=== PATIENT | female | born 1985 | race Caucasian/White ===

== ENCOUNTER 2017-04-26 04:49 | Inpatient (IN) ==
[2017-04-26] MEDS ORDERED: *HR* FentaNYL (PF) 100 MCG/2 ML VIAL IVP ONE ×3 (05:15→07:06)
[2017-04-26] MEDS ORDERED: Ondansetron 4 MG/2 ML VIAL IVP ONE (05:15)
[2017-04-26] MEDS ORDERED: *HR* FentaNYL (PF) 100 MCG/2 ML VIAL ONE (05:17)
[2017-04-26] MEDS ORDERED: Ondansetron 4 MG/2 ML VIAL ONE (05:18)
--- NOTE | 2017-04-26 05:18 | Emergency Department Note ---
Disposition Clinical Impression: Abdominal pain Disposition: Still a Patient Referrals: NONE,PCP [Primary Care Provider] - Forms: ED Satisfaction Letter, Work/School Release Time of Disposition: 06:54 Abdominal Pain HPI - General Chief Complaint: ED Abdominal Pain Stated Complaint: Ovarian Cyst Time Seen by Provider: 04/26/17 04:57 Source: patient Mode of arrival: ambulatory Limitations: no limitations Nursing Notes Reviewed: Yes Vital Signs Reviewed: Yes - History of Present Illness HPI Narrative: Patient presents to the ED with a chief complaint of abdominal pain. Onset about 2 AM. Severe. Nonradiating. No fever. No vomiting. Patient did not know she had a fever. The pain awoke her from sleep. She denies any vaginal symptoms. She denies any history of ovarian cyst. Pain Scale: 10 - Related Data Previous Rx's Medication Instructions Recorded Acetaminophen [Tylenol] 650 mg PO Q6HR PRN #20 tablet 08/08/16 Naproxen [Naprosyn] 500 mg PO BID PRN #10 tablet 04/09/17 Allergies Allergy/AdvReac Type Severity Reaction Status Date / Time No Known Allergies Allergy Verified 04/09/17 03:54 All systems ED: reviewed and negative except as stated. Constitutional: Denies: fever, chills Cardiovascular: Denies: chest pain Gastrointestinal: Reports: abdominal pain, nausea. 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 Positive psoriasis. Positive heel strike. - General Limitations: no limitations General appearance: alert, in no apparent distress - Head Head exam: atraumatic - Eye Eye exam: Present: normal appearance - ENT ENT exam: normal exam, normal oropharynx - Neck Neck exam: Present: normal inspection - Chest Chest inspection: Present: normal inspection - Respiratory Respiratory exam: Present: normal lung sounds bilaterally - Cardiovascular Cardiovascular exam: Present: regular rate, normal rhythm, normal heart sounds - Abdominal Exam Abdominal exam: Present: soft - Neurological Exam Neurological exam: Present: alert, oriented X3, CN II-XII intact - Psychiatric Psychiatric exam: Present: normal affect - Skin Skin exam: Present: warm, dry, intact Course Course Narrative: CT abdomen. Concern for appendicitis. - Reevaluation(s) Reevaluation #1: Patient reevaluated and still having pain. Will order more medication. Time: 06:13 Reevaluation #2: Signed out to pending CT abdomen and pelvis. Time: 06:54 Vital Signs Temperature 102.2 F H 04/26/17 04:50 Pulse Rate 128 04/26/17 04:50 Respiratory Rate 20 04/26/17 04:50 Blood Pressure 126/88 04/26/17 04:50 O2 Sat by Pulse Oximetry 99 04/26/17 04:50 Temperature 99.9 F H 04/26/17 06:40 Pulse Rate 104 04/26/17 06:40 Respiratory Rate 16 04/26/17 06:40 Blood Pressure 125/86 04/26/17 06:40 O2 Sat by Pulse Oximetry 94 04/26/17 06:40 Oxygen Delivery Oxygen Delivery Room Air Abdominal Pain - Lab Data Result diagrams: 04/26/17 05:30 04/26/17 05:30 Lab Results 04/26/17 04/26/17 04/26/17 Range/Units 05:01 05:01 05:30 WBC 19.8 H (4.3-11.1) K/mcL RBC 4.65 (3.82-4.97) M/mcL Hgb 12.7 (11.5-15.4) g/dL Hct 39.5 (35.3-44.9) % MCV 84.9 (83.0-100.0) fL MCH 27.3 L (28.0-33.3) pg MCHC 32.2 (31.6-35.5) g/dL RDW 13.0 (11.5-14.5) % Plt Count 279 (140-400) K/mcL MPV 10.3 (9.4-12.4) fL Immature Gran % 0.3 (0-4) % Seg Neutrophils % 75.8 % Lymphocytes % 15.3 % Monocytes % 7.7 % Eosinophils % 0.7 % Basophils % 0.2 % Neutrophils # 15.1 H (1.6-8.9) K/mcL Lymphocytes # 3.0 (0.6-4.6) K/mcL Monocytes # 1.5 H (0.0-1.3) K/mcL Eosinophils # 0.1 (0.0-0.6) K/mcL Basophils # 0.0 (0.0-0.2) K/mcL PT (9.4-12.1) Seconds INR APTT (26.0-36.0) Seconds Sodium (136-145) mEq/L Potassium (3.5-5.1) mEq/L Chloride (98-107) mEq/L Carbon Dioxide (23-29) mEq/L BUN (6-20) mg/dL Creatinine (0.60-1.20) mg/dL Est GFR ( Amer) (> 60) Est GFR (Non-Af Amer) (> 60) BUN/Creatinine Ratio (6-26) Glucose (70-105) mg/dL Calculated Osmolality (280-300) Calcium (8.6-10.3) mg/dL Total Bilirubin (0.3-1.0) mg/dL Direct Bilirubin (0.0-0.2) mg/dL Indirect Bilirubin (0.0-1.2) mg/dL AST (13-39) Units/L ALT (7-52) Units/L Alkaline Phosphatase (34-104) Units/L Serum Total Protein (6.4-8.9) g/dL Albumin (3.5-5.7) g/dL Globulin (2.4-3.5) g/dL Albumin/Globulin Ratio (1.1-2.2) Amylase (29-103) Units/L Lipase (11-82) Units/L Urine Color Yellow (Yellow) Urine Clarity Clear (Clear) Urine pH 6.0 (5.0-8.0) pH Units Ur Specific [place] 1.019 (1.010-1.025) Urine Protein Negative (Neg-Trace) mg/dL Urine Glucose (UA) Normal (Normal) mg/dL Urine Ketones Negative (Negative) mg/dL Urine Blood Trace H (Negative) Urine Nitrite Negative (Negative) Urine Bilirubin Negative (Negative) Urine Urobilinogen Normal (Normal) mg/dL Ur Leukocyte Esterase Negative (Negative) Urine Microscopic RBC 0-3 (0-3) per hpf Urine Microscopic WBC 0-3 (0-3) per hpf Ur Squamous Epith Cells Many H (None-Few) per lpf Urine Bacteria None Seen (None-Few) per hpf Hyaline Casts None Seen (None-Few) per lpf Ur Culture Indicated? NO (NO) Urine Test Negative (Negative) 04/26/17 04/26/17 Range/Units 05:30 05:30 WBC (4.3-11.1) K/mcL RBC (3.82-4.97) M/mcL Hgb (11.5-15.4) g/dL Hct (35.3-44.9) % MCV (83.0-100.0) fL MCH (28.0-33.3) pg MCHC (31.6-35.5) g/dL RDW (11.5-14.5) % Plt Count (140-400) K/mcL MPV (9.4-12.4) fL Immature Gran % (0-4) % Seg Neutrophils % % Lymphocytes % % Monocytes % % Eosinophils % % Basophils % % Neutrophils # (1.6-8.9) K/mcL Lymphocytes # (0.6-4.6) K/mcL Monocytes # (0.0-1.3) K/mcL Eosinophils # (0.0-0.6) K/mcL Basophils # (0.0-0.2) K/mcL PT 12.0 (9.4-12.1) Seconds INR 1.1 APTT 30.7 (26.0-36.0) Seconds Sodium 133 L (136-145) mEq/L Potassium 4.0 (3.5-5.1) mEq/L Chloride 103 (98-107) mEq/L Carbon Dioxide 26 (23-29) mEq/L BUN 11 (6-20) mg/dL Creatinine 0.64 (0.60-1.20) mg/dL Est GFR ( Amer) > 60 (> 60) Est GFR (Non-Af Amer) > 60 (> 60) BUN/Creatinine Ratio 17 (6-26) Glucose 126 H (70-105) mg/dL Calculated Osmolality 277 L (280-300) Calcium 9.2 (8.6-10.3) mg/dL Total Bilirubin 0.4 (0.3-1.0) mg/dL Direct Bilirubin 0.1 (0.0-0.2) mg/dL Indirect Bilirubin 0.3 (0.0-1.2) mg/dL AST 17 (13-39) Units/L ALT 19 (7-52) Units/L Alkaline Phosphatase 64 (34-104) Units/L Serum Total Protein 7.5 (6.4-8.9) g/dL Albumin 4.0 (3.5-5.7) g/dL Globulin 3.5 (2.4-3.5) g/dL Albumin/Globulin Ratio 1.1 (1.1-2.2) Amylase 26 L (29-103) Units/L Lipase 21 (11-82) Units/L Urine Color (Yellow) Urine Clarity (Clear) Urine pH (5.0-8.0) pH Units Ur Specific [place] (1.010-1.025) Urine Protein (Neg-Trace) mg/dL Urine Glucose (UA) (Normal) mg/dL Urine Ketones (Negative) mg/dL Urine Blood (Negative) Urine Nitrite (Negative) Urine Bilirubin (Negative) Urine Urobilinogen (Normal) mg/dL Ur Leukocyte Esterase (Negative) Urine Microscopic RBC (0-3) per hpf Urine Microscopic WBC (0-3) per hpf Ur Squamous Epith Cells (None-Few) per lpf Urine Bacteria (None-Few) per hpf Hyaline Casts (None-Few) per lpf Ur Culture Indicated? (NO) Urine Test (Negative)
[2017-04-26 05:31] LABS: Bilirubin,Urine Negative (Negative); Blood,Urine Trace (Negative); Clarity,Urine Clear (Clear); Color,Urine Yellow (Yellow); Glucose,Urine (UA) Normal (Normal); Ketones,Urine Negative (Negative); Leukocyte Esterase,Urine Negative (Negative); Nitrite,Urine Negative (Negative); Protein,Urine Negative (Neg-Trace); Specific Gravity,Urine 1.019 (1.010-1.025); Urobilinogen,Urine Normal (Normal)
[2017-04-26 05:34] LABS: Bacteria,Urine None Seen per hpf (None-Few); Hyaline Casts,Urine None Seen per lpf (None-Few); RBC,Urine 0-3 per hpf (0-3); Squamous Epithelial Cell,Urine Many per lpf (None-Few); WBC,Urine 0-3 per hpf (0-3)
[2017-04-26 05:50] LABS: Basophils % 0.2 %; Eosinophils # 0.1 K/mcL (0.0-0.6); Eosinophils % 0.7 %; Hematocrit 39.5 % (35.3-44.9); Hemoglobin 12.7 g/dL (11.5-15.4); Immature Granulocytes % 0.3 % (0-4); Lymphocytes % 15.3 %; Mean Corpuscular HGB Conc 32.2 g/dL (31.6-35.5); Mean Corpuscular Hemoglobin 27.3 pg (28.0-33.3); Mean Corpuscular Volume 84.9 fL (83.0-100.0); Mean Platelet Volume 10.3 fL (9.4-12.4); Monocytes # 1.5 K/mcL (0.0-1.3); Monocytes % 7.7 %; Neutrophils # 15.1 K/mcL (1.6-8.9); Platelet Count 279 K/mcL (140-400); Red Blood Count 4.65 M/mcL (3.82-4.97); Segmented Neutrophils % 75.8 %
[2017-04-26 06:07] LABS: INR 1.1
[2017-04-26 06:10] LABS: Activated Partial Thrombo Time 30.7 Seconds (26.0-36.0)
[2017-04-26 06:12] LABS: Alanine Aminotransferase 19 Units/L (7-52); Albumin/Globulin Ratio 1.1 (1.1-2.2); Alkaline Phosphatase 64 Units/L (34-104); Amylase 26 Units/L (29-103); Aspartate Amino Transferase 17 Units/L (13-39); BUN/Creatinine Ratio 17 (6-26); Bilirubin,Direct 0.1 mg/dL (0.0-0.2); Bilirubin,Indirect 0.3 mg/dL (0.0-1.2); Bilirubin,Total 0.4 mg/dL (0.3-1.0); Blood Urea Nitrogen 11 mg/dL (6-20); Calcium 9.2 mg/dL (8.6-10.3); Carbon Dioxide 26 mEq/L (23-29); Chloride 103 mEq/L (98-107); Globulin 3.5 g/dL (2.4-3.5); Glucose 126 mg/dL (70-105); Lipase 21 Units/L (11-82); Osmolality,Calculated 277 (280-300); Sodium 133 mEq/L (136-145); Total Protein 7.5 g/dL (6.4-8.9); eGFR For African Americans > 60 (> 60); eGFR For Non-African Americans > 60 (> 60)
--- NOTE | 2017-04-26 07:04 | Emergency Department Note ---
Disposition Clinical Impression: Salpingitis, Pelvic inflammatory disease (PID) Abdominal pain Qualifiers: Abdominal location: right lower quadrant Qualified Code(s): R10.31 - Right lower quadrant pain Disposition: Admitted As Inpatient Condition: Fair Referrals: NONE,PCP [Primary Care Provider] - Forms: ED Satisfaction Letter, Work/School Release Time of Disposition: 08:21 General Adult HPI - General Chief complaint: ED Abdominal Pain Stated complaint: Ovarian Cyst Time Seen by Provider: 04/26/17 04:57 Source: patient Mode of arrival: ambulatory Limitations: no limitations - History of Present Illness Pain Scale: 10 - Related Data Previous Rx's Medication Instructions Recorded Acetaminophen [Tylenol] 650 mg PO Q6HR PRN #20 tablet 08/08/16 Naproxen [Naprosyn] 500 mg PO BID PRN #10 tablet 04/09/17 Allergies Allergy/AdvReac Type Severity Reaction Status Date / Time No Known Allergies Allergy Verified 04/09/17 03:54 Constitutional: Denies: fever, chills Cardiovascular: Denies: chest pain Gastrointestinal: Reports: abdominal pain, nausea. 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 - Social History Smoking Status: Current every day smoker Smokeless Tobacco Status: No Alcohol use: Reports: none Drug use: Reports: none Physical Exam - General Limitations: no limitations General appearance: alert, in no apparent distress Course Vital Signs Temperature 102.2 F H 04/26/17 04:50 Pulse Rate 128 04/26/17 04:50 Respiratory Rate 20 04/26/17 04:50 Blood Pressure 126/88 04/26/17 04:50 O2 Sat by Pulse Oximetry 99 04/26/17 04:50 Temperature 99.9 F H 04/26/17 07:16 Pulse Rate 100 04/26/17 07:16 Respiratory Rate 18 04/26/17 07:16 Blood Pressure 122/69 04/26/17 07:16 O2 Sat by Pulse Oximetry 95 04/26/17 07:16 Oxygen Delivery Oxygen Delivery Room Air Medical Decision Making - Lab Data Result diagrams: 04/26/17 05:30 04/26/17 05:30 Lab Results 01/27/18 01/27/18 01/27/18 Range/Units 05:01 05:01 05:30 WBC 19.8 H (4.3-11.1) K/mcL RBC 4.65 (3.82-4.97) M/mcL Hgb 12.7 (11.5-15.4) g/dL Hct 39.5 (35.3-44.9) % MCV 84.9 (83.0-100.0) fL MCH 27.3 L (28.0-33.3) pg MCHC 32.2 (31.6-35.5) g/dL RDW 13.0 (11.5-14.5) % Plt Count 279 (140-400) K/mcL MPV 10.3 (9.4-12.4) fL Immature Gran % 0.3 (0-4) % Seg Neutrophils % 75.8 % Lymphocytes % 15.3 % Monocytes % 7.7 % Eosinophils % 0.7 % Basophils % 0.2 % Neutrophils # 15.1 H (1.6-8.9) K/mcL Lymphocytes # 3.0 (0.6-4.6) K/mcL Monocytes # 1.5 H (0.0-1.3) K/mcL Eosinophils # 0.1 (0.0-0.6) K/mcL Basophils # 0.0 (0.0-0.2) K/mcL PT (9.4-12.1) Seconds INR APTT (26.0-36.0) Seconds Sodium (136-145) mEq/L Potassium (3.5-5.1) mEq/L Chloride (98-107) mEq/L Carbon Dioxide (23-29) mEq/L BUN (6-20) mg/dL Creatinine (0.60-1.20) mg/dL Est GFR ( Amer) (> 60) Est GFR (Non-Af Amer) (> 60) BUN/Creatinine Ratio (6-26) Glucose (70-105) mg/dL Calculated Osmolality (280-300) Calcium (8.6-10.3) mg/dL Total Bilirubin (0.3-1.0) mg/dL Direct Bilirubin (0.0-0.2) mg/dL Indirect Bilirubin (0.0-1.2) mg/dL AST (13-39) Units/L ALT (7-52) Units/L Alkaline Phosphatase (34-104) Units/L Serum Total Protein (6.4-8.9) g/dL Albumin (3.5-5.7) g/dL Globulin (2.4-3.5) g/dL Albumin/Globulin Ratio (1.1-2.2) Amylase (29-103) Units/L Lipase (11-82) Units/L Urine Color Yellow (Yellow) Urine Clarity Clear (Clear) Urine pH 6.0 (5.0-8.0) pH Units Ur Specific [place] 1.019 (1.010-1.025) Urine Protein Negative (Neg-Trace) mg/dL Urine Glucose (UA) Normal (Normal) mg/dL Urine Ketones Negative (Negative) mg/dL Urine Blood Trace H (Negative) Urine Nitrite Negative (Negative) Urine Bilirubin Negative (Negative) Urine Urobilinogen Normal (Normal) mg/dL Ur Leukocyte Esterase Negative (Negative) Urine Microscopic RBC 0-3 (0-3) per hpf Urine Microscopic WBC 0-3 (0-3) per hpf Ur Squamous Epith Cells Many H (None-Few) per lpf Urine Bacteria None Seen (None-Few) per hpf Hyaline Casts None Seen (None-Few) per lpf Ur Culture Indicated? NO (NO) Urine Test Negative (Negative) 04/26/17 04/26/17 Range/Units 05:30 05:30 WBC (4.3-11.1) K/mcL RBC (3.82-4.97) M/mcL Hgb (11.5-15.4) g/dL Hct (35.3-44.9) % MCV (83.0-100.0) fL MCH (28.0-33.3) pg MCHC (31.6-35.5) g/dL RDW (11.5-14.5) % Plt Count (140-400) K/mcL MPV (9.4-12.4) fL Immature Gran % (0-4) % Seg Neutrophils % % Lymphocytes % % Monocytes % % Eosinophils % % Basophils % % Neutrophils # (1.6-8.9) K/mcL Lymphocytes # (0.6-4.6) K/mcL Monocytes # (0.0-1.3) K/mcL Eosinophils # (0.0-0.6) K/mcL Basophils # (0.0-0.2) K/mcL PT 12.0 (9.4-12.1) Seconds INR 1.1 APTT 30.7 (26.0-36.0) Seconds Sodium 133 L (136-145) mEq/L Potassium 4.0 (3.5-5.1) mEq/L Chloride 103 (98-107) mEq/L Carbon Dioxide 26 (23-29) mEq/L BUN 11 (6-20) mg/dL Creatinine 0.64 (0.60-1.20) mg/dL Est GFR ( Amer) > 60 (> 60) Est GFR (Non-Af Amer) > 60 (> 60) BUN/Creatinine Ratio 17 (6-26) Glucose 126 H (70-105) mg/dL Calculated Osmolality 277 L (280-300) Calcium 9.2 (8.6-10.3) mg/dL Total Bilirubin 0.4 (0.3-1.0) mg/dL Direct Bilirubin 0.1 (0.0-0.2) mg/dL Indirect Bilirubin 0.3 (0.0-1.2) mg/dL AST 17 (13-39) Units/L ALT 19 (7-52) Units/L Alkaline Phosphatase 64 (34-104) Units/L Serum Total Protein 7.5 (6.4-8.9) g/dL Albumin 4.0 (3.5-5.7) g/dL Globulin 3.5 (2.4-3.5) g/dL Albumin/Globulin Ratio 1.1 (1.1-2.2) Amylase 26 L (29-103) Units/L Lipase 21 (11-82) Units/L Urine Color (Yellow) Urine Clarity (Clear) Urine pH (5.0-8.0) pH Units Ur Specific [place] (1.010-1.025) Urine Protein (Neg-Trace) mg/dL Urine Glucose (UA) (Normal) mg/dL Urine Ketones (Negative) mg/dL Urine Blood (Negative) Urine Nitrite (Negative) Urine Bilirubin (Negative) Urine Urobilinogen (Normal) mg/dL Ur Leukocyte Esterase (Negative) Urine Microscopic RBC (0-3) per hpf Urine Microscopic WBC (0-3) per hpf Ur Squamous Epith Cells (None-Few) per lpf Urine Bacteria (None-Few) per hpf Hyaline Casts (None-Few) per lpf Ur Culture Indicated? (NO) Urine Test (Negative) Attestation Statement - Attestation Attestation: Care assumed from Dr. Negrete at [address] abdomen and pelvis. Patient presented with lower abdominal pain and fever. Labs reviewed by me indicated leukocytosis. Patient does not appear in any acute distress on exam. 07:07: Patient's CT indicates a dilated right fallopian tube. Pelvic ultrasound ordered. Additional analgesics offered. Fever reducers ordered 08:20: Test results discussed with patient. Call placed [employer] naturopathic oncology provider Dr. Angela
[2017-04-26] MEDS ORDERED: Ketorolac 15 MG/ML VIAL IVP ONE (07:06)
[2017-04-26] MEDS ORDERED: Doxycycline 100 MG in 0.9 % Sodium Chloride Mini Bag 100 ML IVPB ONE ×2 (08:18→08:45)
[2017-04-26] MEDS ORDERED: cefOXitin 2,000 MG in Water for inj. (sterile) 10 ML IVP ONE (08:18)
[2017-04-26] MEDS ORDERED: Doxycycline 100 MG in 0.9 % Sodium Chloride 100 ML IVPB ONE (08:30)
[2017-04-26] MEDS ORDERED: Naloxone 0.4 MG/ML INJ IVP PRN (08:51)
--- NOTE | 2017-04-26 09:28 | Internal Med History&Physical ---
Date of Encounter: 04/26/17 Time of Encounter: 10:06 Assessment and Plan (1) Sepsis Current visit: Yes Status: Acute Patient presented with fever with a maximum temperature 102.2, tachycardia with a maximum heart heart rate of 128, leukocytosis with left shift and pelvic source of information infection. Blood cultures drawn, we will follow. Urine analysis is unremarkable. Sepsis is due to pelvic inflammatory disease with hydrosalpinx. She has been started on intravenous doxycycline and cefoxitin, continue the same. Urine test is negative Consult [employer] P[employer] Check urine for chlamydia and gonorrhea, if positive recommend to treat Partner. Lactic acid is within normal limits. IV fluid hydration. Qualifiers: Sepsis type: sepsis due to unspecified organism Qualified Code(s): A41.9 - Sepsis, unspecified organism (2) Pelvic inflammatory disease (PID) Current visit: Yes Status: Acute As above, consult [employer]. (3) Tobacco abuse Current visit: Yes Status: Chronic Tobacco cessation encouraged. Nicotine patch 14 mg transdermal. (4) Morbid obesity Current visit: Yes Status: Acute Lifestyle modification Internal Medicine - H&P: HPI Chief complaint: Abdominal pain Admitted From: Home Plans for Post Hospital Care: Home History of present illness: Ms. Doherty is a 32 year old female with history of tobacco abuse who presented to the ER with right lower quadrant and suprapubic abdominal pain started yesterday. She reports she was in the usual state of health until last night when she developed sharp severe right lower quadrant and suprapubic pain, described to be stabbing in nature and nonradiating, not colicky. She sees. 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 Therefore she does not know if she has any abnormal vaginal discharges. She denies trauma or any vaginal instrumentation recently. Her partner is at the bedside during evaluation. She has associated nausea, vomiting. At presentation in the emergency room, she was found to be tachycardic, and febrile with a maximum temperature of 102.2. Workup in the ER revealed leukocytosis with a white count of 19,800 with left shift, influenza negative, chemistries unremarkable. Lactic acid is normal. Urine analysis is unremarkable for infection. A pelvic ultrasound revealed pelvic inflammatory disease with R hydrosalpinx. Associated R ovarian hemorrhagic cyst. She will be admitted to medicine inpatient for management of sepsis secondary to pelvic inflammatory disease with hydrosalpinx, blood cultures will be drawn as we know drawn in the ER, [employer] consulted. Past Med Surg Social Fam HX - Past Medical History Medical history: other Psychiatric history: no psych history - Social History Smoking Status: Current every day smoker Smokeless Tobacco Status: No Alcohol use: none Drug use: none Internal Medicine - H&P: Meds No Known Home Drugs 04/26/17 [History] 3 Allergy/AdvReac Type Severity Reaction Status Date / Time No Known Allergies Allergy Verified 04/26/17 09:28 All Systems PM: A 10-system review of systems was performed and is negative for pertinent findings except as documented above in the HPI. - Constitutional Constitutional: chills, fever(s) - EENT Eyes: no change in vision, no discharge, no pain, no photophobia Ears: no ear discharge, no ear pain, no tinnitus Nose, mouth and throat: no dysphagia, no nasal discharge, no neck pain, no sore throat - Cardiovascular Cardiovascular ROS IM: no chest pain, no diaphoresis, no dyspnea, no lightheadedness, no palpitations, no syncope - Respiratory Respiratory: no cough, no dyspnea, no wheezing, no excessive phlegm production - Gastrointestinal Gastrointestinal: nausea, vomiting, no abdominal pain, no diarrhea, no hematemesis, no hematochezia, no melena - Genitourinary Genitourinary: as per HPI Menstruation: as per HPI - Musculoskeletal Musculoskeletal ROS IM: as per HPI - Integumentary Integumentary IM: as per HPI - Neurological Neurological ROS: no confusion, no convulsions, no focal weakness, no numbness, no tingling, no tremor(s) - Hematologic/Lymphatic Hematologic/Lymphatic: no easy bruising - Constitutional Vitals: Temp Pulse Resp BP Pulse Ox 98.1 F 73 16 116/68 96 04/26/17 09:00 04/26/17 09:00 04/26/17 09:00 04/26/17 09:00 04/26/17 09:00 General appearance: Present: A&O X 3, morbidly obese, no acute distress - Head Head exam: Present: atraumatic, normocephalic - Eye Eye exam: Present: PERRL, conjuntiva pink, sclera anicteric Pupils: Present: PERRL - ENT ENT exam: Present: mucous membranes dry - Neck Neck exam general surgery: Present: supple, trachea midline. Absent: lymphadenopathy - Respiratory Respiratory exam: Present: CTAB. Absent: accessory muscle use, rales, rhonchi, wheezes - Cardiovascular Cardiovascular exam: Present: RRR, +S1, +S2. Absent: diastolic murmur, gallop, rubs, systolic murmur - GI/Abdominal GI/Abdominal exam: Present: normal bowel sounds, soft, no peritoneal signs. Absent: distended, tenderness - Additional comments: deferred to [employer] P[employer]MAN - Extremities Exam Extremities exam: Present: warm, radial pulses palpable and symmetrical. Absent : calf tenderness, cyanotic, pedal edema - Neurological Exam Neurological exam: Present: alert, CN II-XII intact, oriented X3, no focal deficits. Absent: pronater drift, facial droop, speech deficit - Skin Skin exam: Present: dry, intact Internal Med - H&P Results - Labs CBC & Chem 7: 04/26/17 05:30 04/26/17 05:30
--- NOTE | 2017-04-26 10:50 | OB/GYN Consult Note ---
Date of Encounter: 04/26/17 Time of Encounter: 10:35 Assessment and Plan (1) Salpingitis Current Visit: Yes Status: Acute Plan: - Continue antibiotics Cefoxitin and Doxycycline - urine Gonorrhea and Chlamydia pending - f/u in the office after discharge within 1 week (2) Tobacco abuse Current Visit: Yes Status: Chronic (3) Morbid obesity Current Visit: Yes Status: Acute History of Present Illness Consult date: 04/26/17 Requesting physician: Merle Araiza Reason for consult: other (RLQ abdominal pain ) Chief complaint: RLQ abdominal pain History of present illness: Carrie is a 32 y/o female presented to the ED with RLQ pain and was found to have salpingitis on transvaginal US. Pain began at 2am this morning. Pain is medial to ASIS and is sharp, currently 3/10. No history of STDs. 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 Last 13 years ago. Denies N/V , dysuria. History of menorrhagia, currently on her period. Past Med Surg Social Fam HX - Past Medical History Source: patient, old records reviewed Medical history: other (headaches) Psychiatric history: no psych history - Past Surgical History Surgical History: cholecystectomy, other - Social History Smoking Status: Current every day smoker Packs per day: 1 Smokeless Tobacco Status: No Alcohol use: none Drug use: none - Family History Father Living Status: Still Living Hx Family Cardiac Disorders: Yes (HTN) Hx Family Genitourinary Disorders: Yes (kidney problems) Hx Family Musculoskeletal Disorders: Yes (muscular dystrophy) Medications and Allergies No Known Home Drugs 04/26/17 [History] 3 Allergy/AdvReac Type Severity Reaction Status Date / Time No Known Allergies Allergy Verified 04/26/17 09:28 Review of Systems All Systems: reviewed and no additional remarkable complaints except as stated Exam - Vital Signs Vital signs: Initial Vital Signs Temp Pulse Resp BP Pulse Ox 102.2 F H 128 20 126/88 99 04/26/17 04:50 04/26/17 04:50 04/26/17 04:50 04/26/17 04:50 04/26/17 04:50 - Constitutional Constitutional: no acute distress - HEENT HEENT: Normocephaly - Lungs Respiratory exam: CTAB - Cardiovascular Cardiovascular exam: RRR - Abdomen Abdomen: Present: bowel sounds normal Abdomen detail: right lower quadrant: tenderness (medial to ASIS) - Extremities Extremities exam: pedal edema Results Result Diagrams: 04/26/17 05:30 04/26/17 05:30 Abnormal lab results WBC 19.8 K/mcL (4.3-11.1) H 04/26/17 05:30 MCH 27.3 pg (28.0-33.3) L 04/26/17 05:30 Neutrophils # 15.1 K/mcL (1.6-8.9) H 04/26/17 05:30 Monocytes # 1.5 K/mcL (0.0-1.3) H 04/26/17 05:30 Sodium 133 mEq/L (136-145) L 04/26/17 05:30 Glucose 126 mg/dL (70-105) H 04/26/17 05:30 Calculated Osmolality 277 (280-300) L 04/26/17 05:30 Amylase 26 Units/L (29-103) L 04/26/17 05:30 Urine Blood Trace (Negative) H 04/26/17 05:01 Ur Squamous Epith Cells Many per lpf (None-Few) H 04/26/17 05:01 All other labs normal. Consult Discharge Plan - Plan Referrals: NONE,PCP [Primary Care Provider] - - Attending Attestation I examined this patient and my medical decision-making was reviewed with the Resident Physician. I agree with the documented findings, disposition and treatment plan as described. Reviewed case with Dr Angela. Abril Araiza CNM
[2017-04-26] MEDS: Nicotine 21 MG PATCH.TD24 TD SCH (12:33)
[2017-04-26] MEDS: *HR* Morphine 2 MG/ML SYRINGE IVP PRN (12:33)
[2017-04-26] MEDS: 0.9 % Sodium Chloride 1,000 ML IVC SCH ×2 (12:33→21:55)
[2017-04-26] MEDS: cefOXitin 2,000 MG in Water for inj. (sterile) 20 ML 20 ML IVP SCH ×2 (15:10→21:48)
[2017-04-26] MEDS: Ondansetron 4 MG/2 ML VIAL IVP PRN (15:10)
[2017-04-26] MEDS: *HR* HYDROcodone/Acet 5/325 mg TABLET PO PRN ×2 (15:10→19:35)
[2017-04-26] MEDS: Acetaminophen 325 MG TABLET PO PRN ×2 (16:36→21:55)
[2017-04-26] MEDS: Doxycycline 100 MG in 0.9 % Sodium Chloride Mini Bag 100 ML IVPB SCH (21:55)
[2017-04-27] MEDS: cefOXitin 2,000 MG in Water for inj. (sterile) 20 ML 20 ML IVP SCH ×5 (00:09→23:22)
[2017-04-27] MEDS: Acetaminophen 325 MG TABLET PO PRN (04:20)
[2017-04-27] MEDS: *HR* Enoxaparin 40 MG/0.4 ML SYRINGE SQ SCH (04:21)
[2017-04-27] MEDS: *HR* Morphine 2 MG/ML SYRINGE IVP PRN (04:28)
[2017-04-27] MEDS: Ondansetron 4 MG/2 ML VIAL IVP PRN (04:28)
[2017-04-27 06:35] LABS: Basophils % 0.2 %; Hematocrit 34.4 % (35.3-44.9); Immature Granulocytes % 0.3 % (0-4); Lymphocytes # 1.9 K/mcL (0.6-4.6); Lymphocytes % 8.8 %; Mean Corpuscular HGB Conc 31.7 g/dL (31.6-35.5); Mean Corpuscular Hemoglobin 27.4 pg (28.0-33.3); Mean Corpuscular Volume 86.4 fL (83.0-100.0); Mean Platelet Volume 10.2 fL (9.4-12.4); Monocytes # 1.4 K/mcL (0.0-1.3); Monocytes % 6.4 %; Neutrophils # 18.4 K/mcL (1.6-8.9); Platelet Count 229 K/mcL (140-400); Red Blood Count 3.98 M/mcL (3.82-4.97); Segmented Neutrophils % 84.3 %
[2017-04-27 06:36] LABS: Hemoglobin 10.9 g/dL (11.5-15.4)
[2017-04-27 06:53] LABS: BUN/Creatinine Ratio 14 (6-26); Blood Urea Nitrogen 8 mg/dL (6-20); Calcium 8.7 mg/dL (8.6-10.3); Carbon Dioxide 23 mEq/L (23-29); Chloride 107 mEq/L (98-107); Glucose 135 mg/dL (70-105); Osmolality,Calculated 280 (280-300); Potassium 3.6 mEq/L (3.5-5.1); Sodium 135 mEq/L (136-145); eGFR For African Americans > 60 (> 60); eGFR For Non-African Americans > 60 (> 60)
[2017-04-27] MEDS: Doxycycline 100 MG in 0.9 % Sodium Chloride Mini Bag 100 ML IVPB SCH ×2 (08:16→20:17)
[2017-04-27] MEDS: Nicotine 21 MG PATCH.TD24 TD SCH ×2 (08:16→20:55)
[2017-04-27] MEDS: *HR* HYDROcodone/Acet 5/325 mg TABLET PO PRN ×3 (08:16→18:00)
--- NOTE | 2017-04-27 09:28 | Internal Med Progress Note ---
Date of Encounter: 04/27/17 Time of Encounter: 09:25 - Assessment and plan (1) Sepsis Current Visit: Yes Status: Acute Assessment and plan: Pt does meet sepsis criteria with elevated WBC, Fever, source of inf as salpingitis Still has fever spikes Tmax 102.2 cot IV hydration cont empirical abx Cefoxitin + Doxy urine Gonorrhea and Chlamydia pending Zipper Lining Folder on board Qualifiers: Sepsis type: sepsis due to unspecified organism Qualified Code(s): A41.9 - Sepsis, unspecified organism (2) Salpingitis Current Visit: Yes Status: Acute Assessment and plan: see above (3) Tobacco abuse Current Visit: Yes Status: Chronic Assessment and plan: counseled to quit smoking on nicotine patch (4) Morbid obesity Current Visit: Yes Status: Acute Assessment and plan: counseled to loose weight - Subjective Interval history: Ms. Doherty is a 32 year old female with history of tobacco abuse who presented to the ER with right lower quadrant and suprapubic abdominal pain started yesterday. She reports she was in the usual state of health until last night when she developed sharp severe right lower quadrant and suprapubic pain, described to be stabbing in nature and nonradiating, not colicky. At presentation in the emergency room, she was found to be tachycardic, and febrile with a maximum temperature of 102.2. Workup in the ER revealed leukocytosis with a white count of 19,800 with left shift. Lactic acid is normal. Urine analysis is unremarkable for infection. A pelvic ultrasound revealed pelvic inflammatory disease with R hydrosalpinx. Associated R ovarian hemorrhagic cyst. Pt was started on IV abx. Today she feels little better. Her abd pain 4/10.. No fever / chills. No N/V. - Constitutional Vitals: Temp Pulse Resp BP Pulse Ox 98.0 F 91 14 100/64 96 04/27/17 07:07 04/27/17 07:07 04/27/17 07:07 04/27/17 07:07 04/27/17 07:07 General appearance: Present: A&O X 3, morbidly obese, no acute distress - Head Head exam: Present: atraumatic, normal inspection - Neck Neck exam general surgery: Present: supple - Respiratory Respiratory exam: Present: decreased breath sounds. Absent: rales, respiratory distress, rhonchi, wheezes - Cardiovascular Cardiovascular exam: Present: RRR, +S1, +S2. Absent: tachycardia - GI/Abdominal GI/Abdominal exam: Present: normal bowel sounds, soft, tenderness (RLQ ++). Absent: rebound, rigid - Extremities Exam Extremities exam: Absent: calf tenderness, pedal edema, tenderness - Back Exam Back exam: Absent: CVA tenderness (L), CVA tenderness (R) - Neurological Exam Neurological exam: Present: alert, oriented X3 - Psychiatric Psychiatric exam: Present: normal affect, normal mood Internal Medicine: Result - Labs CBC & Chem 7: 04/27/17 06:19 04/27/17 06:19 Labs: Short CBC 04/27/17 Range/Units 06:19 WBC 21.8 H (4.3-11.1) K/mcL Hgb 10.9 L D (11.5-15.4) g/dL Hct 34.4 L (35.3-44.9) % Plt Count 229 (140-400) K/mcL Neutrophils # 18.4 H (1.6-8.9) K/mcL BMP 04/27/17 06:19 Sodium 135 L Potassium 3.6 Chloride 107 Carbon Dioxide 23 BUN 8 Creatinine 0.59 L Glucose 135 H Calcium 8.7 - ABG Interpretation ABG results: PT/INR, D-dimer PT 12.0 Seconds (9.4-12.1) 04/26/17 05:30 Consult Discharge Plan - Plan Referrals: NONE,PCP [Primary Care Provider] -
[2017-04-27] MEDS: 0.9 % Sodium Chloride 1,000 ML IVC SCH (13:18)
[2017-04-28] MEDS: 0.9 % Sodium Chloride 1,000 ML IVC SCH (03:00)
[2017-04-28] MEDS: cefOXitin 2,000 MG in Water for inj. (sterile) 20 ML 20 ML IVP SCH (05:13)
[2017-04-28] MEDS: *HR* Enoxaparin 40 MG/0.4 ML SYRINGE SQ SCH (05:14)
[2017-04-28 05:18] LABS: Basophils % 0.1 %; Eosinophils # 0.2 K/mcL (0.0-0.6); Eosinophils % 1.4 %; Hematocrit 35.1 % (35.3-44.9); Hemoglobin 10.6 g/dL (11.5-15.4); Immature Granulocytes % 0.4 % (0-4); Lymphocytes % 14.3 %; Mean Corpuscular HGB Conc 30.2 g/dL (31.6-35.5); Mean Corpuscular Hemoglobin 26.8 pg (28.0-33.3); Mean Corpuscular Volume 88.9 fL (83.0-100.0); Mean Platelet Volume 11.4 fL (9.4-12.4); Monocytes # 0.7 K/mcL (0.0-1.3); Monocytes % 5.1 %; Neutrophils # 10.9 K/mcL (1.6-8.9); Nucleated Red Blood Cells 0.1 /100 WBC (0); Platelet Count 148 K/mcL (140-400); Red Blood Count 3.95 M/mcL (3.82-4.97); Segmented Neutrophils % 78.7 %
[2017-04-28 06:51] VITALS: BP 130/78
[2017-04-28 07:54] LABS: Platelet Estimate Normal (Normal)
[2017-04-28 09:29] LABS: BUN/Creatinine Ratio 16 (6-26); Blood Urea Nitrogen 8 mg/dL (6-20); Carbon Dioxide 16 mEq/L (23-29); Chloride 107 mEq/L (98-107); Glucose 107 mg/dL (70-105); Osmolality,Calculated 277 (280-300); Potassium 3.9 mEq/L (3.5-5.1); Sodium 134 mEq/L (136-145); eGFR For African Americans > 60 (> 60); eGFR For Non-African Americans > 60 (> 60)
--- NOTE | 2017-04-28 10:08 | Discharge Summary ---
Date of Encounter: 04/28/17 Time of Encounter: 10:05 - Discharge Diagnosis (1) Sepsis Priority: Primary Status: Acute Qualifiers: Sepsis type: sepsis due to unspecified organism Qualified Code(s): A41.9 - Sepsis, unspecified organism (2) Salpingitis Priority: Primary Status: Acute (3) Tobacco abuse Priority: Secondary Status: Chronic (4) Morbid obesity Priority: Secondary Status: Acute - Discharge Medications Prescriptions: HYDROcodone/Acet 5/325 mg [Shelby 5-325 mg] 1 tab PO Q8HR PRN #12 tablet PRN Reason: Moderate Pain (4-6) Doxycycline Hyclate 100 mg PO BID #24 tablet. Lactobacillus Acidophilus [Acidophilus] 1 each PO BID #24 capsule Nicotine Patch [Nicoderm] 21 mg TD DAILY #30 patch.td24 Home Medications: Doxycycline Hyclate 100 mg PO BID #24 tablet. 04/28/17 [Rx] HYDROcodone/Acet 5/325 mg [Shelby 5-325 mg] 1 tab PO Q8HR PRN #12 tablet [Rx] Lactobacillus Acidophilus [Acidophilus] 1 each PO BID #24 capsule 04/28/17 [Rx] Nicotine Patch [Nicoderm] 21 mg TD DAILY #30 patch.td24 04/28/17 [Rx] Allergies/Adverse Reactions: 3 Allergy/AdvReac Type Severity Reaction Status Date / Time No Known Allergies Allergy Verified 04/26/17 09:28 Date of admission: 04/26/17 09:22 Primary care physician: PCP NONE - Patient Status Disposition: Home, Self-Care Condition: Good Overall status at discharge: patient is back to baseline - Discharge Instructions Follow Up With: NONE,PCP [Primary Care Provider] - Merle Araiza CNM [Advanced Practice Nurse] - Additional Instructions: Please f/u with Medical Records Library Professor Dr. Araiza in 1 week - Diet and Activity Activity: increase activity as tolerated Diet: low fat, low cholesterol Hospital course: Ms. Doherty is a 32 year old female with history of tobacco abuse who presented to the ER with right lower quadrant and suprapubic abdominal pain started yesterday. She reports she was in the usual state of health until last night when she developed sharp severe right lower quadrant and suprapubic pain, described to be stabbing in nature and nonradiating, not colicky. At presentation in the emergency room, she was found to be tachycardic, and febrile with a maximum temperature of 102.2. Workup in the ER revealed leukocytosis with a white count of 19,800 with left shift. Lactic acid is normal. Urine analysis is unremarkable for infection. A pelvic ultrasound revealed pelvic inflammatory disease with R hydrosalpinx. Associated R ovarian hemorrhagic cyst. Pt was started on IV abx Cefoxitin and Doxycycline. Her symptoms started improving slowly. Her serology for GC and Chlamyadida came back as negative, she remained afebrile and her WBC trending down. Pt was evaluated by Medical Records Library Professor , suggested to continue abx for 14 days and f/u with them as an out pt in 1 week. Will d/c her home today in stable condition on PO Doxy x 12 more days. - Time Spent with Patient Total time spent providing and/or coordinating discharge services: - Constitutional Vitals: Temp Pulse Resp BP Pulse Ox 98.6 F 99 16 130/78 97 04/28/17 06:49 04/28/17 06:49 04/28/17 06:49 04/28/17 06:49 04/28/17 06:49 General appearance: Present: A&O X 3, morbidly obese, no acute distress - Head Head exam: Present: atraumatic, normal inspection - Neck Neck exam general surgery: Present: supple - Respiratory Respiratory exam: Present: decreased breath sounds. Absent: respiratory distress, rhonchi, wheezes - Cardiovascular Cardiovascular exam: Present: RRR, +S1, +S2. Absent: tachycardia - GI/Abdominal GI/Abdominal exam: Present: normal bowel sounds, soft, tenderness (Mild tenderness in RLQ / Lower abdomen). Absent: pulsatile mass, rigid - Back Exam Back exam: Absent: CVA tenderness (L), CVA tenderness (R) - Neurological Exam Neurological exam: Present: alert, oriented X3
[2017-04-28] MEDS ORDERED: *HR* OxyCODONE Immed Rel 5 MG TABLET PO PRN (10:18)
== END 2017-04-28 11:21 | disposition home or self-care (01) | DRG 720 ==
LOC: EMEROO 04:49 → 3ANU 09:22
PROVIDERS: ADMIT Internal Medicine; ATTEND Internal Medicine

== ENCOUNTER 2019-12-09 05:54 | Observation (INO) ==
[2019-12-09] MEDS ORDERED: 0.9 % Sodium Chloride 1,000 ML IVC ONE ×2 (06:06→06:52)
[2019-12-09 06:45] LABS: Basophils % 0.2 %; Eosinophils # 0.1 K/mcL (0.0-0.6); Eosinophils % 0.4 %; Hematocrit 39.9 % (35.3-44.9); Hemoglobin 12.9 g/dL (11.5-15.4); Immature Granulocytes % 0.4 % (0-4); Lymphocytes # 1.9 K/mcL (0.6-4.6); Lymphocytes % 9.2 %; Mean Corpuscular HGB Conc 32.3 g/dL (31.6-35.5); Mean Corpuscular Hemoglobin 28.4 pg (28.0-33.3); Mean Corpuscular Volume 87.9 fL (83.0-100.0); Mean Platelet Volume 9.9 fL (9.4-12.4); Monocytes # 1.2 K/mcL (0.0-1.3); Monocytes % 5.9 %; Neutrophils # 17.2 K/mcL (1.6-8.9); Platelet Count 297 K/mcL (140-400); Red Blood Count 4.54 M/mcL (3.82-4.97); Red Cell Distribution Width 13.1 % (11.5-14.5); Segmented Neutrophils % 83.9 %; White Blood Count 20.5 K/mcL (4.3-11.1)
[2019-12-09] MEDS ORDERED: cefTRIAXone 1,000 MG in 0.9 % Sodium Chloride Mini Bag 100 ML IVPB ONE (06:52)
[2019-12-09] MEDS ORDERED: Azithromycin 500 MG in 0.9 % Sodium Chloride 250 ML IVPB ONE (06:52)
[2019-12-09 06:55] LABS: INR 1.3; Prothrombin Time 14.3 Seconds (9.4-12.1)
[2019-12-09 06:58] LABS: Activated Partial Thrombo Time 32.4 Seconds (26.0-36.0)
[2019-12-09 07:07] LABS: Alanine Aminotransferase 21 Units/L (7-52); Albumin 4.1 g/dL (3.5-5.7); Albumin/Globulin Ratio 1.2 (1.1-2.2); Alkaline Phosphatase 67 Units/L (34-104); Aspartate Amino Transferase 23 Units/L (13-39); BUN/Creatinine Ratio 14 (6-26); Bilirubin,Indirect 0.4 mg/dL (0.0-1.0); Bilirubin,Total 0.4 mg/dL (0.3-1.0); Blood Urea Nitrogen 9 mg/dL (6-20); Calcium 9.6 mg/dL (8.6-10.3); Carbon Dioxide 26 mEq/L (23-29); Chloride 101 mEq/L (98-107); Globulin 3.5 g/dL (2.4-3.5); Glucose 148 mg/dL (70-105); Osmolality,Calculated 281 (280-300); Potassium 3.9 mEq/L (3.5-5.1); Sodium 135 mEq/L (136-145); Total Protein 7.6 g/dL (6.4-8.9); Troponin I < 0.03 ng/mL (< 0.04); eGFR For African Americans > 60 (> 60); eGFR For Non-African Americans > 60 (> 60)
[2019-12-09 07:14] LABS: Bilirubin,Urine Negative (Negative); Blood,Urine Trace (Negative); Clarity,Urine Clear (Clear); Color,Urine Yellow (Yellow); Glucose,Urine (UA) Normal (Normal); Ketones,Urine Negative (Negative); Leukocyte Esterase,Urine Negative (Negative); Mucus,Urine Moderate per lpf (None-Few); Nitrite,Urine Negative (Negative); PH,Urine 5.5 pH Units (5.0-8.0); Protein,Urine 30 mg/dL (Neg-Trace); RBC,Urine 0-3 per hpf (0-3); Specific Gravity,Urine 1.027 (1.010-1.025); Squamous Epithelial Cell,Urine Few per hpf (None-Few); Urobilinogen,Urine Normal (Normal); WBC,Urine 0-3 per hpf (0-3)
[2019-12-09 09:16] LABS: Adenovirus Not Detected (Not Detect); Bordetella Pertussis Not Detected (Not Detect); Chlamydophila pneumoniae Not Detected (Not Detect); Coronavirus 229E Not Detected (Not Detect); Coronavirus HKU1 Not Detected (Not Detect); Coronavirus NL63 Not Detected (Not Detect); Coronavirus OC43 Not Detected (Not Detect); Human Metapneumovirus Not Detected (Not Detect); Human Rhinovirus/Enterovirus Not Detected (Not Detect); Influenza A Subtype 2009 H1 Not Detected (Not Detect); Influenza B Not Detected (Not Detect); Mycoplasma pneumoniae Not Detected (Not Detect); Parainfluenza Virus 1 Not Detected (Not Detect); Parainfluenza Virus 2 Not Detected (Not Detect); Parainfluenza Virus 3 Not Detected (Not Detect); Parainfluenza Virus 4 Not Detected (Not Detect); Respiratory Syncytial Virus Not Detected (Not Detect); SARS-CoV-2 Not Detected (Not Detect)
[2019-12-09] MEDS ORDERED: Isovue-370 500 ML BOTTLE IVP ONE (09:17)
[2019-12-09] MEDS ORDERED: Naloxone 0.4 MG/ML INJ IVP PRN (11:14)
[2019-12-09 11:50] LABS: C-Reactive Protein 89 mg/L (Less than 10)
[2019-12-10 05:35] LABS: Basophils % 0.3 %; Eosinophils # 0.3 K/mcL (0.0-0.6); Eosinophils % 3.1 %; Hematocrit 38.5 % (35.3-44.9); Hemoglobin 12.1 g/dL (11.5-15.4); Immature Granulocytes % 0.2 % (0-4); Lymphocytes # 2.7 K/mcL (0.6-4.6); Lymphocytes % 29.2 %; Mean Corpuscular HGB Conc 31.4 g/dL (31.6-35.5); Mean Corpuscular Hemoglobin 28.4 pg (28.0-33.3); Mean Corpuscular Volume 90.4 fL (83.0-100.0); Mean Platelet Volume 10.6 fL (9.4-12.4); Monocytes # 0.7 K/mcL (0.0-1.3); Monocytes % 7.2 %; Neutrophils # 5.5 K/mcL (1.6-8.9); Platelet Count 243 K/mcL (140-400); Red Blood Count 4.26 M/mcL (3.82-4.97); Red Cell Distribution Width 13.2 % (11.5-14.5)
[2019-12-10 05:38] LABS: White Blood Count 9.2 K/mcL (4.3-11.1)
[2019-12-10 05:50] LABS: BUN/Creatinine Ratio 13 (6-26); Blood Urea Nitrogen 6 mg/dL (6-20); Calcium 9.1 mg/dL (8.6-10.3); Carbon Dioxide 24 mEq/L (23-29); Chloride 104 mEq/L (98-107); Glucose 118 mg/dL (70-105); Osmolality,Calculated 285 (280-300); Potassium 3.7 mEq/L (3.5-5.1); Sodium 138 mEq/L (136-145); eGFR For African Americans > 60 (> 60); eGFR For Non-African Americans > 60 (> 60)
[2019-12-10] MEDS ORDERED: Azithromycin 250 MG TABLET PO SCH (09:00)
[2019-12-10] MEDS ORDERED: cefTRIAXone 1,000 MG in Water for inj. (sterile) 10 ML IVP SCH (09:00)
[2019-12-10 12:12] VITALS: BP 114/63
== END 2019-12-10 14:00 | disposition home or self-care (01) ==
LOC: 3ANU 05:54 → EMEROOARM 05:54 → 3ANU 11:51
PROVIDERS: ADMIT Student in an Organized Health Care Education/Training Program; ATTEND Student in an Organized Health Care Education/Training Program